=== PATIENT | female | born 1945 | race Caucasian/White ===

== ENCOUNTER → 2021-03-11 15:00 | Outpatient (CLI) | payer OTHER ==
[~2021-03-11 15:00] MED LIST: CIPROFLOXACIN500 MG PO; ENALAPRIL MALEAT5 MG PO; METRONIDAZOLE500 MG PO
== END | disposition home or self-care (01) ==
LOC: PPH VACUNA 15:00
DX: Z23 Encounter for immunization (principal)

== ENCOUNTER 2021-12-02 10:20 | Outpatient (CLI) | payer OTHER | END 2021-12-02 10:50 | disposition home or self-care (01) | LOC: PPH VACUNA 10:20 | PROVIDERS: ATTEND Emergency Medicine Pediatric Emergency Medicine | DX: Z23 Encounter for immunization (principal) ==